=== PATIENT | male | born 2000 | race African-American/Black ===

== ENCOUNTER 2021-02-25 16:57 | Inpatient (IN) | payer MEDICAID ==
[~2021-02-25] VITALS: Ht 180.3 cm; Wt 112.1 kg
[~2021-02-25 16:57] MED LIST: NOCURR
[2021-02-25 19:02] LABS: GLUCOMETER DEV NAME(LOC) POC.BV
[2021-02-25] MEDS ORDERED: LANS30CA56 PO (19:09)
[2021-02-25] MEDS ORDERED: LORA10TA7 PO (19:09)
[2021-02-25] MEDS ORDERED: BECL10.62 IH (19:09)
[2021-02-25 19:45] VITALS: BP 130/77
[2021-02-25] MEDS ORDERED: ZOLPIDEM TARTRATE 10 MG TABLET PO PRN (20:00)
[2021-02-25] MEDS ORDERED: HALOPERIDOL 5 MG TABLET PO PRN (20:00)
[2021-02-25] MEDS ORDERED: LORazepam 2 MG TABLET PO PRN (20:00)
[2021-02-26 01:50] VITALS: BP 127/78
[2021-02-26] MEDS ORDERED: MAG HYDROX/AL HYDROX/SIMETH ES 30 ML SUSPENSION UDCUP PO PRN (06:30)
[2021-02-26] MEDS ORDERED: IBUPROFEN 600 MG TABLET PO PRN (06:30)
[2021-02-26] MEDS ORDERED: CloNIDine HCL 0.1 MG TABLET PO PRN (06:30)
[2021-02-26] MEDS ORDERED: BACITRACIN 28 GM OINTMENT TP PRN (06:30)
[2021-02-26] MEDS ORDERED: ALBUTEROL SULFATE HFA 90 MCG/PUFF 8 GM INHALER IH PRN (06:30)
[2021-02-26] MEDS ORDERED: PETROLATUM,WHITE 28 GM JELLY TP PRN (06:30)
[2021-02-26] MEDS ORDERED: BENZOCAINE/MENTHOL LOZENGE PO PRN (06:30)
[2021-02-26] MEDS ORDERED: LOPERAMIDE HCL 2 MG CAPSULE PO PRN (06:30)
[2021-02-26] MEDS ORDERED: DOCUSATE SODIUM 100 MG CAPSULE PO PRN (06:30)
[2021-02-26] MEDS ORDERED: ACETAMINOPHEN 325 MG TABLET PO PRN (06:30)
[2021-02-26] MEDS ORDERED: ONDANSETRON HCL 4 MG TABLET PO PRN (06:30)
[2021-02-26] MEDS ORDERED: MAGNESIUM HYDROXIDE SUSPENSION 30 ML UDCUP PO PRN (06:30)
[2021-02-26] MEDS: LORATADINE 10 MG TABLET PO SCH (08:26)
[2021-02-26] MEDS: OMEPRAZOLE 20 MG CAPSULE PO SCH (08:26)
[2021-02-26] MEDS: BECLOMETHASONE DIPR HFA 80 MCG/PUFF 10.6 GM INHALER IH SCH ×2 (08:27→17:44)
[2021-02-26 09:23] VITALS: BP 133/74
[2021-02-26 16:13] VITALS: BP 135/79
[2021-02-27 01:10] VITALS: BP 129/80
[2021-02-27 08:25] VITALS: BP 131/79
[2021-02-27] MEDS: LORATADINE 10 MG TABLET PO SCH (09:00)
[2021-02-27] MEDS: BECLOMETHASONE DIPR HFA 80 MCG/PUFF 10.6 GM INHALER IH SCH ×2 (09:03→16:18)
[2021-02-27] MEDS: OMEPRAZOLE 20 MG CAPSULE PO SCH (09:03)
[2021-02-27 16:13] VITALS: BP 115/85
[2021-02-28 04:08] VITALS: BP 120/72
[2021-02-28 08:03] LABS: BASOPHILS % (AUTO) 0.3 % (0.0-2.0); HEMATOCRIT 46.2 % (41-53); HEMOGLOBIN 15.2 g/dL (13.5-17.5); LYMPHOCYTES # (AUTO) 1.3 K/uL (1.0-4.8); LYMPHOCYTES % (AUTO) 22.3 % (22.0-44.0); MEAN CORPUSCULAR HGB CONC 32.8 G/dL (31.0-37.0); MEAN CORPUSCULAR VOLUME 88 fL (80-100); MONOCYTES # (AUTO) 0.5 K/uL (0.1-1.0); MONOCYTES % (AUTO) 8.7 % (2.0-9.0); NEUTROPHILS # (AUTO) 3.4 K/uL (1.8-7.7); NEUTROPHILS % (AUTO) 58.7 % (40.0-70.0); PLATELET COUNT (AUTO) 206 K/uL (150-450); RED BLOOD CELL COUNT(AUTO) 5.23 MIL/uL (4.50-5.90); RED CELL DISTRIBUTION WIDTH 12.4 % (11.5-14.5)
[2021-02-28 08:04] VITALS: BP 131/84
[2021-02-28] MEDS: BECLOMETHASONE DIPR HFA 80 MCG/PUFF 10.6 GM INHALER IH SCH ×2 (08:04→16:17)
[2021-02-28] MEDS: OMEPRAZOLE 20 MG CAPSULE PO SCH (08:04)
[2021-02-28] MEDS: LORATADINE 10 MG TABLET PO SCH (08:04)
[2021-02-28 08:05] LABS: HEMOGLOBIN A1C 5.4 % (3.8-5.6)
[2021-02-28 08:47] LABS: ALANINE AMINOTRANSFERASE 29 U/L (12-78); ALBUMIN 3.9 g/dL (3.4-5.0); ALKALINE PHOSPHATASE 79 U/L (46-116); ANION GAP 10 mmol/L (8-16); ASPARTATE AMINOTRANSFERASE 16 U/L (15-37); BILIRUBIN,TOTAL 0.2 mg/dL (0.1-1.0); CALCIUM, TOTAL 8.9 mg/dL (8.8-10.5); CARBON DIOXIDE 26 mmol/L (22-29); CHLORIDE 102 mmol/L (98-107); CHOLESTEROL 139 mg/dL (131-200); CREATININE 0.88 mg/dL (0.60-1.30); FREE T4 (FREE THYROXINE) 0.94 ng/dL (0.76-1.46); GLOMERULAR FILTR. RATE CALC > 60 mL/min (>60); GLUCOSE,RANDOM 85 mg/dL (70-110); HDL CHOLESTEROL 35 mg/dL (40-60); LDL CHOL (CALC.) 87 mg/dL (0-130); POTASSIUM 4.1 mmol/L (3.5-5.1); SODIUM SERUM 138 mmol/L (136-145); TOTAL PROTEIN, SERUM 7.4 g/dL (6.4-8.2); TRIGLYCERIDES 87 mg/dL (15-150); UREA NITROGEN, BLOOD 14 mg/dL (7-18)
[2021-02-28 16:03] VITALS: BP 136/85
[2021-03-01 00:10] VITALS: BP 131/72
[2021-03-01 07:44] LABS: AMPHET/METH SCREEN,URINE NEGATIVE (NEGATIVE); BARBITURATE SCREEN, URINE NEGATIVE (NEGATIVE); BENZODIAZEPINES SCREEN,URINE NEGATIVE (NEGATIVE); CANNABINOID SCREEN,URINE NEGATIVE (NEGATIVE); COCAINE SCREEN,URINE NEGATIVE (NEGATIVE); METHADONE SCREEN, URINE NEGATIVE (NEGATIVE); OPIATE SCREEN,URINE NEGATIVE (NEGATIVE)
[2021-03-01 08:02] VITALS: BP 138/79
[2021-03-01 08:08] LABS: APPEARANCE,URINE CLEAR (CLEAR); BILIRUBIN,URINE NEGATIVE (NEGATIVE); GLUCOSE, URINE (UA) NEGATIVE (NEGATIVE); KETONES,URINE NEGATIVE (NEGATIVE); LEUKOCYTE ESTERASE ,URINE NEGATIVE (NEGATIVE); NITRATE,URINE NEGATIVE (NEGATIVE); OCCULT BLOOD,URINE NEGATIVE (NEGATIVE); PROTEIN,URINE NEGATIVE (NEGATIVE); UROBILINOGEN,URINE 0.2 mg/dL (<=1.0)
[2021-03-01 08:15] LABS: PHENCYCLIDINE SCREEN,URINE NEGATIVE (NEGATIVE)
[2021-03-01] MEDS: LORATADINE 10 MG TABLET PO SCH (08:27)
[2021-03-01] MEDS: OMEPRAZOLE 20 MG CAPSULE PO SCH (08:27)
[2021-03-01] MEDS: BECLOMETHASONE DIPR HFA 80 MCG/PUFF 10.6 GM INHALER IH SCH ×2 (09:13→16:29)
[2021-03-01 16:04] VITALS: BP 116/70
[2021-03-02 00:10] VITALS: BP 133/76
[2021-03-02 07:30] LABS: COVID AG,FIA SOURCE NASOPHARYNGEAL
[2021-03-02 08:19] VITALS: BP 142/87
[2021-03-02 08:21] VITALS: BP 116/65
[2021-03-02] MEDS: OMEPRAZOLE 20 MG CAPSULE PO SCH (08:38)
[2021-03-02] MEDS: BECLOMETHASONE DIPR HFA 80 MCG/PUFF 10.6 GM INHALER IH SCH ×2 (08:38→16:28)
[2021-03-02] MEDS: LORATADINE 10 MG TABLET PO SCH (08:38)
[2021-03-02 16:11] VITALS: BP 136/72
== END 2021-03-02 19:00 | disposition home or self-care (01) | DRG 750 ==
LOC: B2S 19:11
PROVIDERS: ADMIT Psychiatry & Neurology Psychiatry; ATTEND Psychiatry & Neurology Psychiatry
DX: F25.9 Schizoaffective disorder, unspecified (principal); E66.9 Obesity, unspecified; Z68.34 Body mass index [BMI] 34.0-34.9, adult; K21.9 Gastro-esophageal reflux disease without esophagitis; J45.909 Unspecified asthma, uncomplicated; K59.00 Constipation, unspecified; G47.00 Insomnia, unspecified; F41.9 Anxiety disorder, unspecified; Z20.822 Contact with and (suspected) exposure to COVID-19
CPT/HCPCS: 80053; 80061; 80307; 81003; 83036; 84439; 84443; 85025; J3535